=== PATIENT | female | born 1985 | race Caucasian/White ===

== ENCOUNTER 2022-09-13 11:47 | Emergency (ER) | payer OTHER, SELFPAY ==
--- NOTE | ~2022-09-13 | XR_ITS ---
EXAMINATION: XR chest 1V portable INDICATION: Chest injury and pain TECHNIQUE: Portable AP chest at 1228 hours COMPARISON: 02/16/2016 FINDINGS: The lungs are free of acute opacities. No pleural effusion or pneumothorax. There is a mode rate-sized hiatal hernia. IMPRESSION: 1. No acute cardiopulmonary abnormality. Reviewed, dictated and finalized at location B.
[2022-09-13 11:55] VITALS: BP 132/98; PULSE 86; RESP 18; TEMP 36.1; O2SAT 100
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
== END 2022-09-13 13:28 | disposition home or self-care (01) ==
PROVIDERS: Emergency Provider Emergency Medicine; PCP Internal Medicine
DX: R07.89 Other chest pain (principal)
CPT/HCPCS: 71045; 99283

== ENCOUNTER 2023-11-28 12:42 | Outpatient (CLI) | payer OTHER, SELFPAY ==
--- NOTE | ~2023-11-28 | MM_ITS ---
EXAMINATION: MM screening mo BI w jovanny HISTORY: Screening TECHNIQUE: Craniocaudal and mediolateral oblique 3-D tomosynthesis images were obtained and synthetic 2-D images were generated. CAD analysis was submitted and interpreted. COMPARISON: No prior mammogram is available for comparison at this institution. BREAST PARENCHYMAL COMPOSITION: Dense: The breasts are heterogeneously dense, which may obscure small masses FINDINGS: There is no evidence of suspicious mass, calcification, or architectural distortion to sugg est malignancy in either breast. There has been no suspicious interval change. IMPRESSION: 1. No mammographic evidence of malignancy. 2. Recommend routine screening mammography in one year. BI-RADS Category 1: Negative Reviewed, dictated and finalized at location B.
== END 2023-11-28 12:43 | disposition home or self-care (01) ==
LOC: CHSIMG 12:43
PROVIDERS: PCP Internal Medicine; Visit Provider Obstetrics & Gynecology
DX: Z12.31 Encounter for screening mammogram for malignant neoplasm of breast (principal)
CPT/HCPCS: 77063; 77067

== ENCOUNTER 2024-02-17 13:53 | Outpatient (CLI) | payer OTHER, SELFPAY ==
--- NOTE | ~2024-02-17 | US_ITS ---
EXAMINATION: US pelvic complete w TV INDICATION: IUD check. Irregular bleeding. Comparison:No prior studies for comparison. TECHNIQUE: Multiple transabdominal and endovaginal sonographic images of the pelvis performed. FINDINGS: The uterus measures 8.1 x 4.6 x 5.9 cm. IUD is present in the endometrium. The endometrial complex measures 8 mm. The right ovary measures 2.7 x 4.1 x 4 cm and the left ovary measures 2.3 x 3.4 x 2.4 cm. There are small follicles in each ovary. Normal doppler signal in both ovaries. There is free fluid in the pelvis. There are no abnormal masses seen on either side. IMPRESSION: 1. Unremarkable pelvic ultrasound. IUD present in the endometrium. Reviewed, dictated and finalized at location B. 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
== END 2024-02-17 13:54 | disposition home or self-care (01) ==
PROVIDERS: PCP Internal Medicine; Visit Provider Obstetrics & Gynecology
DX: Z30.431 Encounter for routine checking of intrauterine contraceptive device (principal)
CPT/HCPCS: 76830; 76856

== ENCOUNTER 2024-12-16 14:15 | Outpatient (CLI) | payer OTHER, SELFPAY ==
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
--- NOTE | ~2024-12-16 | MM_ITS ---
EXAMINATION: MM screening mo BI w jovanny HISTORY: Screening TECHNIQUE: Craniocaudal and mediolateral oblique 3-D tomosynthesis images were obtained and synthetic 2-D images were generated. CAD analysis was submitted and interpreted. COMPARISON: 11/28/2023 BREAST PARENCHYMAL COMPOSITION: There are scattered areas of fibroglandular density. FINDINGS: There is no evidence of suspicious mass, calcification, or architectural distortion to suggest malignancy. There has been no suspicious interval change. IMPRESSION: 1. No mammographic evidence of malignancy. Recommend routine screening mammography in one year. BI-RADS Category 2: Benign finding(s) Reviewed, dictated and finalized at location [facility]. IMPRESSION: 1. No mammographic evidence of malignancy. Recommend routine screening mammogra phy in one year. BI-RADS Category 2: Benign finding(s)
--- OUTSIDE RECORDS SUMMARY | 2024-12-16 16:21 | XMS_ITS | Encounter Summary ---
Author Organization [facility] Address [address] [place] [address] Phone Care Team Providers Care Tire Groover Name Role Phone Chiki Johns MD Primary Care Provider [phone] Emilia Harris MD Unavailable [phone] Encounter Details Date Type Department Care Team (Latest Contact Info) Description 04/04/2017 Orders Only [facility] CONVERSION Scanning, Provider Social History Tobacco Use Types Packs/Day Years Used Date Smoking Tobacco: Never Assessed Comments Unknown Sex and Gender Information Value Date Recorded Sex Assigned at Not on file Legal Sex Female 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 Gender Identity Not on file Sexual Orientation Not on file documented as of this encounter Plan of Treatment Not on file documented as of this encounter Procedures Procedure Name Priority Date/Time Associated Diagnosis Comments OBSTETRIC/GYNECOLOGY ULTRASONOGRAPHY REPORT 04/04/2017 10:53 AM WATER PURIFIER documented in this encounter Results * OBSTETRIC/GYNECOLOGY ULTRASONOGRAPHY REPORT (04/04/2017 10:53 AM WATER PURIFIER) Anatomical Region Laterality Modality Ultrasound us Provider Scanning IMG OB US PROCEDURES Final Res ult documented in this encounter Visit Diagnoses Not on filedocumented in this encounter Care Teams Tire Groover Relationship Specialty Start Date End Date Chiki Johns MD PCP - General 04/04/17 Emilia Harris MD [address] [facility] [address] [facility] [address] [place] [address] Consulting Physician Obstetrics and Gynecology 04/09/21 documented as of this encounter
--- OUTSIDE RECORDS SUMMARY | 2024-12-16 16:21 | XMS_ITS | Clinical Summary ---
Author Organization [facility] Address [address] [place] [address] Care Team Providers Care Systems Administrator Name Role Phone Unavailable Primary Care Provider Unavailabl e Source Comments [facility],non-owned Affiliates and Associated Physician Practices is amultiple site organization consisting of ambulatory clinics and hospital sitesin [place], [place], [place] and [place]. This disclosure is being madepursuant to the Care Everywhere program and may not contain all information available regarding this patient. 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 Female 10:25 AM ANNOUNCER Gender Identity Not on file Sexual Orientation Not on file Plan of Treatment Health Maintenance Due Date Last Done Comments LIPID TESTING 1985 MAMMOGRAM 1985 HIV SCREENING 11/02/1998 HEPATITIS C SCREENING 10/29/2001 DTAP/TDAP/TD VACCINES (1 - Tdap) 11/02/2002 HEPATITIS B VACCINE (1 of 3 - 19+ 3-dose series) 11/02/2002 PAP SMEAR 11/02/2004 HPV VACCINE (1 - 3-dose SCDM series) 11/02/2010 DEPRESSION SCREENING 03/03/2024 COVID-19 VACCINE (1 - 2023-2 5 season) 2024 INFLUENZA VACCINE (#1) 2024 ZOSTER VACCINE (1 of 2) 11/02/2033 HIB VACCINE Aged Out No longer eligi ble based on patient's age to complete this topic MENINGOCOCCAL (Group B) VACC INE SHARED DECISION-MAKING Aged Out No longer eligibl e based on patient's age to complete this topic MENINGOCOCCAL GROUPS A/C/Y/W VACCINE Aged Out No longer eligible b ased on patient's age to complete this topic PNEUMOCOCCAL VACCINE Aged Out No long er eligible based on patient's age to complete this topic Insurance MULTIPLAN
--- OUTSIDE RECORDS SUMMARY | 2024-12-16 16:21 | XMS_ITS | Encounter Summary ---
Author Organization [facility] Address [address] [place] [address] Care Team Providers Care Fur Mixer Operator Name Role Phone Unavailable Primary Care Provider Unavailabl e Encounter Details Date Type Department Care Team (Late st Contact Info) Description 01/13/2023 Lab Requisition [facility] - DermPath Lab [address] [place] [address] Kady De La Torre DO [address] [facility] [address] [place] [address] Social History Tobacco Use Types Packs/Day Years Used Date Smoking Tobacco: Never Assessed Comments Unknown Sex and Gender Information Value Date Recorded Sex Assigned at Not on file Legal Sex Female 10:25 AM SCHOOL PATROL Gender Identity Not on file Sexual Orientation Not on file documented as of this encounter Plan of Treatment Not on file documented as of this encounter Procedures Procedure Name Priority Date/Time Associated Diagnosis Comments DERMATOPATHOLOGY Routine 01/13/2023 10:1 4 AM SCHOOL PATROL documented in this encounter Results * DERMATOPATHOLOGY (01/13/2023 10:14 AM SCHOOL PATROL) Case Report Dermatopathology Report Case: [id number] Authorizing Provider: Kady De La Torre DO Collected: 01/13/2023 10:14 AM Ordering Location: [facility] Derm[facility] Lab Received: 01/15/2023 07:09 AM Pathologist: Quynh Martinez MD Specimen: Skin, right upper arm 3 12:51 PM [facility] Final Diagnosis Specimen A. SKIN, right upper arm: LENTIGINOUS MELANOCYTIC NEVUS, COMPOUND TYPE (D22.61) (see microscopic description and comment) 3 12:51 PM [facility] at [address] [employer] Clinical History Nevus R/O Atypia, Irregular Border, Irregular Color 3 12:51 PM [facility] DERMAT[facility] Gross Description Specimen A: Received is one formalin filled container labeled with the patient's name and designated right upper arm. The specimen consists of a shave biopsy measuring 6x3x1 mm. Jar 0. 3 12:51 PM [facility] DERMATOPATH[facility]Y [facility]OR[facility] Microscopic Description Specimen A. SKIN, right upper arm: This is a compound nevus. There is a lentiginous proliferation of melanocytes between nevus nests of cells along the dermal-epidermal junction. There is underlying lamellar fibroplasia of the papillary dermis. The intradermal component is bland in appearance and matures with depth. (Compound Camilo's Nevus) This lesion is present at the margin of the specimen. COMMENT: If this specimen is sampled from a larger lesion, these findings may not be aircraft sales representative of the entire lesion. Clinicopathologic correlation is recommended. 3 12:51 PM [facility] DERMATOPATH[facility]Y [facility]OR[facility] Disclaimer An external and internal positive and negative controls are appropriate for the histochemical, immunohistochemical and immunofluorescence stain(s) in this case (if any), except where stated explicitly. The performance characteristics of the stain(s) cited in this report were developed and its performance characteristic determined by the Dermatopathology Laboratory at [facility], directed by Dr. Mary Dorman. These tests need not be, and therefore are not, approved by the [place] Food and Drug Administration. The tests are used for clinical purposes. Billing Codes Specimen Charges Stain Charges 39217 1 3 12:51 PM [facility] DERMATOPATH[facility] Embedded Images 3 12:51 PM [facility] DERMATOPATH[facility]Y [facility]ORY Pathology/Cytolo gy TISSUE SPECIMEN FROM SKIN / Unknown 01/13/2023 10:14 AM SCHOOL PATROL 01/15/2023 7:09 AM SCHOOL PATROL us Kady De La Torre DO LAB - PATHOLOGY/CYTOLOGY ORDERABLES Final Result DERMATOPATHOLOGY LABORATORY [facility] - Department of Dermatology [address], [address] [phone] documented in this encounter Visit Diagnoses Not on filedocumented in this encounter
--- OUTSIDE RECORDS SUMMARY | 2024-12-16 16:22 | XMS_ITS | Clinical Summary ---
Author Organization [facility] Address [address] [place] [address] Care Team Providers Care Caustics Loader Name Role Phone Chiki Johns MD Primary Care Provider [phone] Emilia Harris MD Unavailable Allergies No known active allergies Medications lamoTRIgine (LaMICtal) 200 mg tablet 2 Active venlafaxine 225 mg tablet extended release 24hr 24 hr tablet 2 Active lamoTRIgine (LaMICtal) 100 mg tablet TAKE 1/2 TABLET BY MOUTH IN THE MORNING 2 Active levonorgestreL (MIRENA) IUD 1 each by intrauterine route once Inserted 05/18/2021 Active Active Problems Problem Noted Date Diagnosed Date Screening for cervical cancer 04/23/2021 Overview (04/23/2021): 04/11/21 - Pap w/ reflex to HPV - Negative Irregular menses 04/11/2021 Assessment & Plan (04/11/2021 1:27 PM REFORESTATION WORKER): Check UPT today. Addendum (results negative) Check quant hcg and TSH to r/o etiology. Discussed possible etiologies. Will check pelvic US for IUD position today. Well woman exam with routine gynecological exam 04/11/2021 Assessment & Plan (06/18/2021 2:16 PM CDT): Pap smear was done in April during a problem visit and was normal. Recommend self-breast exam and baseline mammogram at 38. We did confirm her IUD is appropriately placed by ultrasound today and her strings were visualized on exam. Continue with the Mirena and follow up p.r.n. any problems Assessment & Plan (04/11/2021 1:30 PM REFORESTATION WORKER): After US - r/w pt IUD is not position correctly. UPT negative but will confirm with quant since IUD malpositioned. I reviewed with pt options - remove IUD today - use condoms for BC til new mirena placed or remove today or another day if she doesn't have time and discuss other BC options. Pt desires new Mirena - states it's worked well for her til now. Will task staff to check coverage. Pt has WWE scheduled in June. Will set up IUD insertion - pt given mirena pamphlet and IUD instruction sheet. Answered pt's questions. Pt happy wit plan IUD removed without difficulty. H/O pelvic ultrasound 04/11/2021 Overview (04/11/2021): 04/2021 for bleeding with IUD. IUD is not positioned at the fundus. EMC 0.5cm. Bruno OV Nl. IUD removed. (pt's hcg 9.9) Surgical History Surgery Date Site/Laterality Comments VAGINAL DELIVERY / [facility]ro / Female Inna / 41 wks / 7-8oz / Spinal JUNG and had blood patch, MIL for post dates VAGINAL DELIVERY / Ramiro / Female Lupe LAPAROSCOPIC TICO FUNDOPLICATION 01/31/2011 - 03/02/2011 repair DILATION AND CURETTAGE OF UTERUS x2 EAB TICO FUNDOPLICATION Medical History Medical History Date Comments Abnormal Pap smear of cervix Depression GERD (gastroesophageal reflux disease) History of Tico fundoplication surgically repaired Bipolar II disorder (HCC) 05/2020 psychi atrist - Dr. March Cystic fibrosis Pradip i s Negative Smoker Family History Medical History Relation Name Comments Suicide Completion Father Heart attack Paternal Grandfather Lung cancer Paternal Grandfather Colon cancer Paternal Grandmother Breast cancer Neg Hx Relation Name Status Comments Father Mother Alive Paternal Grandfather Paternal Grandmother Social History Tobacco Use Types Packs/Day Years Used Date Smoking Tobacco: Never Smokeless Tobacco: Never Alcohol Use Standard Drinks/Week Comments No 0 (1 standard drink = 0.6 oz pur e alcohol) AUDIT-C Answer Date Recorded Q1: How often do you have a drink containing alc ohol? 2-4 times a month 06/18/2021 Average Number of Drinks Not on file 022 Frequency of Binge Drinking Not on file 06/01 Comments No Sex and Gender Information Value Date Recorded Sex Assigned at Not on file Legal Sex Female 11:20 AM REFORESTATION WORKER Gender Identity Not on file Sexual Orientation Not on file Obstetrics History Para Term AB IAB SAB Ectopic Multiple Livin g Live Births 6 3 3 3 2 1 3 3 Date Outcome GA Total Labor Labor/2nd/3rd Weight Sex Type Anes PTL Evangelina A1 A5 Name Clin 2001 IAB Decea sed 2004 IAB Decea sed 012 Term F Epidur al N Livin g Complications:None 014 Term F Epidur al N Livin g Complications:None 018 Term 39w 2d 5h 45m 5h 05m/0h 34m/0h 06m 3.935 kg (8 lb 10.8 oz) F Vag-S pont Epidur al N Livin g 8 9 PIGEO N,GIR [facility] Charly Monroe MD Complications:None Delivery Location:This [facility] ([facility]) 04/2021 SAB SAB Last Filed Vital Signs Vital Sign Reading Time Taken Comments Blood Pressure 120/86 06/18/2021 1:54 PM CDT Pulse 69 08/21/2017 8:00 AM CDT Temperature 37.2 C (99 F) 08/21/2017 8:00 AM CDT Respiratory Rate 18 08/21/2017 8:00 AM CDT Oxygen Saturation 100% 08/21/2017 8:00 AM CDT Inhaled Oxygen Concentration - - Weight 91.2 kg (201 lb) 06/18/2021 1:54 PM CDT Height 160 cm (5' 3) 06/18/2021 1:54 PM CDT Body Mass Index 35.61 06/18/2021 1:54 PM CDT Plan of Treatment Health Maintenance Due Date Last Done Comments Breast Cancer Screening-Mammogram 1985 Varicella Vaccines (1 of 2 - 13+ 2-dose series) 11/02/1996 Hepatitis B Screening 11/02/2001 HPV Vaccines (1 - 3-dose SCDM series) 11/02/2010 Depression Screening 08/21/2018 08/21/2017 Cervical Cancer Screening 04/11/2022 04/11/2021 Regular Well Visit/Exam 18-64 06/18/2022 06/18/2021 Covid-19 Vaccine (3 - 2024- season) 2024 02/19/2021, 05/11/2020, 05/11/2020 Influenza Vaccine (#1) 2024 8, 12/01/2017, 01/14/2017, Additional history exists DTaP/Tdap/Td Vaccine (3 - Td or Tdap) 07/17/2027 07/16/2017, 04/15/2013 Hepatitis C Screening Completed 01/31/2017, 013 Pneumococcal vaccine <65 Aged Out No longer eligible based on patient's age to complete this topic Procedures Procedure Name Priority Date/Time Associated Diagnosis Comments PAP WITH REFLEX TO HIGH RISK HPV Routine 04/11/2021 10:55 AM REFORESTATION WORKER HEPATITIS C ANTIBODY Routine 01/31/2017 10:39 AM REFORESTATION WORKER from Last 3 Months or Most Recently Relevant to Health Maintenance Results * Pap with reflex to High Risk HPV (04/11/2021 10:55 AM REFORESTATION WORKER) Pap test 04/11/2021 10:5 5 AM REFORESTATION WORKER 04/13/2021 8:48 AM REFORESTATION WORKER Narrative 04/17/2021 9:04 AM REFORESTATION WORKER EPIC results best viewed via link to PDF [place] [id number] [facility], [place], [place] [address] Tele: Suad Linares MD - [employer] Analyst CYTOLOGY REPORT Note to Patients: This report may contain a detailed description of human tissue sent by a health care provider to the laboratory for pathologic evaluation. The content of this report is essential for diagnosis and may provide important critical findings. This information may be unfamiliar to patients to review without a medical professional present. It is advised that the patient review this report in the presence of a health care provider who can answer questions and explain the details. Patient Name: NEISHA COLON Address: [address] [place] [address] Gender: F : 1985 (Age: 35) Service: Location: Hospital #: [id number] Patient Type: [facility] SPECIMEN Taken: 04/11/2021 Reported: 04/17/2021 Physician(s): IESHA Zhong FINAL DIAGNOSIS: Specimen Type: - ThinPrep Pap w/ reflex HPV Statement of Specimen Adequacy: Source: Cervical/Endocervical - Satisfactory for interpretation - Endocervical /Transformation Zone component present - Scant Cellularity - Case screened using computer assisted imaging technology General Categorization: - Negative for intraepithelial lesion or malignancy xbb/04/17/2021 09:04 GUNNER Solis (ASCP) Report Reviewed and Electronically Signed By GUNNER Solis (ASCP) Clerical Data Follow A; [id number] CLINICAL DIAGNOSIS AND HISTORY Last Menstrual Period: 03/25/21 Contraceptive History: IUD REPORT IMAGES AND/OR SCANNED DOCUMENTS ONLY VIEWABLE IN PDF FORMAT The Pap test is a screening test used to aid in the detection of cervical cancer and its precursors. It should not be the sole means by which malignant and premalignant lesions are diagnosed. Both false negative and false positive results may occur. It also has poor sensitivity for the detection of endometrial lesions and should not be used to evaluate suspected endometrial abnormalities. For these reasons it is most important to obtain Pap tests at regular intervals, as recommended by your physician or nurse practitioner. Yajaira Corral [facility] CYTOLOGY ORDERABLES Final Result * Hepatitis C antibody (01/31/2017 10:39 AM REFORESTATION WORKER) Hep C Ab Non-Reactiv e Non-Reactiv e [facility] Blood specimen (specimen) 01/31/2017 10:39 AM REFORESTATION WORKER 01/31/2017 12:42 PM REFORESTATION WORKER Narrative [facility] - 01/31/2017 1:28 PM REFORESTATION WORKER us Notinfile Unknown LAB MICROBIOLOGY - GENERAL ORD ERABLES Final Result [facility] [address]issa[address] Department [place] [address] from Last 3 Months or Most Recently Relevant to Health Maintenance Insurance [facility] C[employer] MULTIPLAN MULTIPLAN MULTIPLAN Advance Directives For more information, please contact: [phone] * Full Code (Latest Code Status on File) Date Activated Date Inactivated Comments 08/20/2017 9:44 PM 08/21/2017 8:00 PM * Full Code Date Activated Date Inactivated Comments 08/20/2017 8:16 AM 08/20/2017 9:44 PM Full CPR in case of cardiopulmonary arrest Care Teams Caustics Loader Relationship Specialty Start Date End Date Chiki Johns MD PCP - General 04/04/17 Emilia Harris MD [address] [facility] [address] [place] [address] Consulting Physician Obstetrics and Gynecology 04/09/21
--- OUTSIDE RECORDS SUMMARY | 2024-12-16 16:22 | XMS_ITS | Patient Health Record ---
Author Organization [facility] [employer] Address [address] [facility] [address] [place] [address] Care Team Providers Care Arbitrator Name Role Phone Chiki Johns MD Primary Care Provider Unavaila Quynh Garrido Unavailable [phone] LeylaKhalif sánchez Unavailable [phone] Allergies No Known Allergies Results Component Value Reference Range Flag Notes UDT Reviewed date:05/12/2024 08:45:53 PM Interpretation: Performing Lab: Notes/Report: THC P 0 - 50 ng/ml Cocaine N 0 - 300 ng/ml Amphetamine N 0 - 1000 ng/ml Buprenorphine (BUP) N 0 - 10 ng/ml Secobarbital (Bar) N 0 - 300 ng/ml Oxazepam (BZO) N 0 - 300 ng/ml 3-wspymjmccr-2,2-rxtyfmxz-9, 3-diph enylpyrrolidine (EDDP) N 0 - 300 ng/ml Methamphetamine (MET) N 0 - 1000 ng/ml Methylenedioxymethamphetamin e (MDMA) N 0 - 500 ng/ml Morphine (MOP 300/[id number]) N 0 - 300 ng/ml Methadone (MTD) N 0 - 300 ng/ml Phencyclidine (PCP) N 0 - 25 ng/ml Nortriptyline (TCA) N 0 - 1000 ng/ml Oxycodone N 0 - 300 ng/ml x N 0 - 300 ng/ml DRUG MONITOR, MARIJUANA META B, QN, URINE ([id number]) Reviewed date:05/20/2024 09:44:26 AM Interpretation: Performing Lab:[place], [facility] [facility], [id number] Rodri Burnette, Director - [id number] [facility] [facility] Notes/Report: FASTING: NO Marijuana Metabolite >5000 <5 ng/mL H medMATCH Marijuana Metab INCONSISTENT A Marijuana Comments See Boy osegueraedith Notes, LDT Notes Notes and Comments This drug testing is for medical treatment only. Analysis was performed as non-forensic testing and these results should be used only by healthcare providers to render diagnosis or treatment, or to monitor progress of medical conditions. Marijuana Notes: Marijuana Metabolite detected is consistent with exposure to Marijuana (THC) and/or hemp derived products. Some jurisdictions do not include hemp within the definition of Marijuana. LDT Notes: Confirmation tests were developed and their analytical performance characteristics have been determined by [facility]. It has not been cleared or approved by the FDA. This assay has been validated pursuant to the CLIA regulations and is used for clinical purposes. medMATCH(R) enables providers to identify if drug use is consistent or inconsistent with a corresponding prescribed medication(s) list. Healthcare Providers needing Interpretation assistance, please contact us at [phone] ( ) M-F, 8am to 10pm EST PRESCRIBED DRUGS, medMATCH(R ) ([id number]) Reviewed date:05/20/2024 09:44:26 AM Interpretation: Performing Lab:[id number] Catarino Ortiz, [id number] Francisco Javier Penn MD Notes/Report: FASTING: NO medMATCH Summary Prescribed Prescribed Not Prescribed Consistent Inconsistent Inconsistent Marijuana Metabolite Reason For Referral No Information Medications Medication SIG (Take, Route, Frequency, Duration) Notes Start Date End Date Status Atomoxetine HCl 80 MG Capsule 1 capsule every morning Orally Once a day; Duration: 30 days Active MIRENA 21 MCG/24 HR (UP TO 8 YEARS) 52 MG INTRAUTERINE DEVICE *Reorder from [employer] for eRx and Interaction Alerts* 06/16/2023 Active Venlafaxine HCl ER 225 MG Tablet Extended Release 24 Hour 1 tablet Oral Once a day; Duration: 90 days Active lamoTRIgine 100 MG Tablet 2 tablet every night Oral daily; Duration: 90 days Active Social History Tobacco Use: Social History Observation Description Date Details (start date - stop date) Never Smoker NA - NA Sex Assigned At : Social History Observation Description Sex Assigned At Female Social History Miscellaneous: Social Info Question Answer Notes Advance Care Planning Are you your own decision-maker Yes Do you have Power of Floor Nurse for Health or [facility] andrea? No Safety issues: Are there any firearms in the house? No Social History Social Info Question Answer Notes Household: Marital Status: Number of Adults in household: 2 Number of Children in Household: 3 Level of Education: Professional Schools/Masters /PhD Drug/Alcohol: Social Info Question Answer Notes Drugs Have you used drugs other than those for medical reasons in the past 12 months? Yes Methamphetamine? No Crack? No LSD? No Ecstacy? No Prescription opiates? No Marijuana? Yes Ketamine? No PCP? No Is there a minor (18 years or younger) at risk at home? No Are you still using? Yes Do you want treatment? No AUDIT-C (Standard) Did you have a drink containi ng alcohol in the past year? Yes How often did you have six or more drinks on one occasion in the past year? Less than monthly (1 point) How many drinks did you have on a typical day when you were drinking in the past year? 3 or 4 drinks (1 point) How often did you have a drink containing alcohol in the past year? 2 to 4 times a month (2 points) Tobacco Use: Social Info Question Answer Notes Tobacco Control (Standard) Tobacco use: Nonsmoker Additional Details Category Social Info Options Details Migrated Social History Migrated Social History Alcohol Intake: Occasional 06/16/2023,Tobacco Years: Former smoker 06/16/2023 Problems Problem Type SNOMED Code ICD Code Onset Dates Problem Status W/U Status Risk Notes Problem Bipolar disorder (36847735) Bipolar disorder, unspecified (F31.9) Active confirmed Problem Generalized anxiety disorder (98536167) Generalized anxiety disorder (F41.1) 06/16/19 24 Active confirmed Problem Attention deficit hyperactivity disorder, combined type (37247364) Attention-deficit hyperactivity disorder, combined type (F90.2) Active confirmed Problem Nondependent cannabis abuse (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) Marijuana use (F12.90) Active confirmed Problem Middle insomnia (35138563) Middle insomnia (G47.00) Active confirmed Problem Middle insomnia (28841757) Middle insomnia (G47.00) Active confirmed Problem Alcohol abuse (83075730) Alcohol consumption binge drinking (F10.10) Active confirmed Vital Signs Heart Rate 71 /min 08/18/2024 Height-cm 157.48 cm 08/18/2024 Blood pressure diastolic 79 mm Hg 08/18/2024 Weight-kg 64.86 kg 08/18/2024 Height 62.00 in 08/18/2024 Blood pressure systolic 113 mm Hg 08/18/2024 Weight 143 lbs 08/18/2024 BMI 26.15 kg/m2 08/18/2024 Procedures Procedure Date Ordered Date Performed Result Body Sit e ADHD Testing 04/20/2024 05/12/2024 N/A Encounters Encounter Location Date Provider Diagnosis [facility] [address] [facility] [address] [place] [address] 03/16/2024 Quynh Sandoval Bipolar II disorder F31.81 ; Generalized anxiety disorder F41.1 ; Middle insomnia G47.00 and Alcohol consumption binge drinking F10.10 [facility] [address] [facility] [address] [place] [address] 04/20/2024 Quynh Sandoval Bipolar II disorder F31.81 ; Generalized anxiety disorder F41.1 ; Middle insomnia G47.00 and Attention and concentration deficit R41.840 [facility] [address] [address] 05/12/2024 Khalif Mayer Lack of concentratio n R41.840 [employer] [facility] [address] [facility] [address] [place] [address] 05/19/2024 Quynh Sandoval Attention-deficit hyperactivity disorder, combined type F90.2 ; Bipolar disorder, unspecified F31.9 ; Generalized anxiety disorder F41.1 ; Middle insomnia G47.00 ; Encounter for screening for depression Z13.31 and Encounter for screening for cardiovascular disorders Z13.6 [facility] [address] [facility] [address] [place] [address] 08/18/2024 Quynh Sandoval Attention-deficit hyperactivity disorder, combined type F90.2 ; Generalized anxiety disorder F41.1 ; Bipolar disorder, unspecified F31.9 ; Marijuana use F12.90 ; Encounter for screening for cardiovascular disorders Z13.6 and Negative depression screening Z13.31 [facility] [address] [place] [address] 03/15/2024 Quynh Sandoval [facility] [employer] [facility] [address] [place] [address] 04/20/2024 Quynh Sandoval Assessments Encounter Date Diagnosis (ICD Code) Assessment Notes Treatment Notes Treatment Clinical Notes Section Notes 04/20/2024 Bipolar II disorder (ICD-10 - F31.81) Expresses concerns about accuracy of bipolar dagnosis and wishes to explore decreasing/elimin ating medications. Expresses desire to pursue ADHD testing and treatment, mutual decision to get ADHD testing before changing any medications as her mood and anxiety is currently stable Bipolar II Disorder - questionable with accuracy - mood currently stable Plan: - Continue lamotrigine 200 mg daily for now - discuss more in depth history and symptoms in future visits Attention Deficit Hyperactivity Disorder (previously diagnosed by another provider, never treated) - Patient expressed concerns about ADHD impact on life and functioning Plan: - Schedule for ADHD testing and follow up to discuss results and treatment options Anxiety - Currently on Effexor 225 mg daily, effective in managing symptoms Plan: - Continue Effexor 225 mg daily Insomnia - Sleeping well currently, not taking trazodone, wishes to stop Plan: - Stop trazodone Follow-up after ADHD testing, sooner if concerns arise 04/20/2024 Generalized anxiety disorder (ICD-10 - F41.1) Expresses concerns about accuracy of bipolar dagnosis and wishes to explore decreasing/elimin ating medications. Expresses desire to pursue ADHD testing and treatment, mutual decision to get ADHD testing before changing any medications as her mood and anxiety is currently stable Bipolar II Disorder - questionable with accuracy - mood currently stable Plan: - Continue lamotrigine 200 mg daily for now - discuss more in depth history and symptoms in future visits Attention Deficit Hyperactivity Disorder (previously diagnosed by another provider, never treated) - Patient expressed concerns about ADHD impact on life and functioning Plan: - Schedule for ADHD testing and follow up to discuss results and treatment options Anxiety - Currently on Effexor 225 mg daily, effective in managing symptoms Plan: - Continue Effexor 225 mg daily Insomnia - Sleeping well currently, not taking trazodone, wishes to stop Plan: - Stop trazodone Follow-up after ADHD testing, sooner if concerns arise 03/16/2024 Bipolar II disorder (ICD-10 - F31.81) Anixiety - Currently on Effexor 225 mg daily, effective in managing symptoms - Eliminated additional 75 mg dose without negative effects Plan: - Continue Effexor 225 mg daily - Reassess effectiveness and potential side effects at next follow-up Bipolar II Disorder - Currently on Lamotrigine for bipolar II disorder - Patient mentioned possibility of PMDD as alternative diagnosis Plan: - Maintain current Lamotrigine regimen - discuss history, symptoms, and reassess symptoms next visit Attention Deficit Hyperactivity Disorder (ADHD) - Previous ADHD evaluation and diagnosis, but untreated - Patient expressed concerns about ADHD impact on life and functioning Plan: - Discuss ADHD symptoms, impact on daily life, and potential treatment options at next follow-up Insomnia - Sleeping fair currently - Prescribed Trazodone as needed, used sparingly due to family circumstances Plan: - Continue Trazodone as needed for sleep difficulties Recent loss of a family member - Patient's mother on day of appointment Plan: - Reassess mental health status and discuss concerns related to recent loss at follow-up - Adjust treatment plan as necessary Therapy status - Not currently in therapy, using learned tools to manage mental health Plan: - Reevaluate need for therapy at next follow-up Follow-up in 4 to 6 weeks to reassess mental health status, discuss concerns, and adjust treatment plan as needed 05/12/2024 Lack of concentration (ICD-10 - R41.840) Cognitive Assessment Analysis & Non-Stimulant Recommendations for Neisha Roland Assessment Overview: Date of : 1985 (Age: 38) Gender: Female Comparative Group: Females aged 35-44 Assessment Date: May 12, 2024 Cognitive Markers Outside Typical Range: 5 ASRS Questionnaire Result: Indicative of ADHD THC Positive: Cannot use stimulant medication Espinal Findings Cognitive Strengths: Attention (Feature Match) - 85th Percentile Strong ability to identify relevant details and visual patterns, suggesting intact selective attention skills. Sustained Attention (SART) - Reaction Time Variability: 68th Percentile Moderately stable attention over time, though some fluctuations exist. Cognitive Weaknesses (Outside Typical Range) Spatial Working Memory (Token Search) - 7th Percentile Difficulty holding and manipulating spatial information, affecting organization and planning. Response Inhibition (Double Trouble) - 91st Percentile (High Errors) Poor impulse control, leading to difficulty stopping automatic responses. Reaction Time (Feature Match) - 94th Percentile (Slower Reaction Time) Delayed responses, indicating potential difficulties with processing speed. Overall Reaction Time (Double Trouble) - 92nd Percentile Significantly slower response time in decision-making tasks. Slowing After Errors (SART) - 10th Percentile Difficulty adjusting behavior after mistakes, impacting learning from errors. ASRS ADHD Questionnaire Results: Part A Score: 5 (Threshold > 3) ADHD Indicative Part B Score: 10 (Supportive of ADHD symptoms) Non-Stimulant Treatment & Lifestyle Recommendations Since stimulant medications (e.g., Adderall, Ritalin) are contraindicated due to THC use, non-stimulant options and lifestyle modifications should be considered. 1. Non-Stimulant Medications Atomoxetine (Strattera) - Targets norepinephrine for sustained ADHD symptom control. Guanfacine (Intuniv) or Clonidine (Kapvay) - Alpha-2 agonists that help with impulse control and working memory. Bupropion (Wellbutrin) - Antidepressant that can aid ADHD symptoms by increasing dopamine and norepinephrine. 2. Behavioral & Cognitive Strategies Cognitive-Behavio ral Therapy (CBT): Helps manage impulsivity and executive dysfunction. Mindfulness Training: Reduces distractibility and improves sustained attention. Habit Stacking & External Supports: Use alarms, to-do lists, and structured routines to aid working memory deficits. Reduce distractions and use noise-canceling headphones for focus. 3. Nutritional & Lifestyle Adjustments [place]-3 Fatty Acids: Shown to improve executive function in ADHD. Regular Exercise: Boosts dopamine and norepinephrine naturally, helping with attention and impulse control. Sleep Optimization: Establishing a fixed sleep schedule improves cognitive regulation. 05/19/2024 Bipolar disorder, unspecified (ICD-10 - F31.9) Attention Deficit Hyperactivity Disorder (ADHD) Assessment: Patient underwent cognitive testing which revealed deficits consistent with ADHD. Cannabis use, does express willingness to quit in order to gain better control over symptoms and broaden treatment options Plan: - Initiate atomoxetine (Strattera) 40 mg PO daily in the morning - Educate patient on potential side effects: headaches, increased anxiety, jitteriness, appetite suppression - Advise patient to report significant side effects such as increased blood pressure, heart palpitations, or heightened anxiety - Schedule follow-up in 4 weeks to assess medication efficacy and tolerability - Consider stimulant medication if urine drug screen is negative in future visits if indicated Cannabis Use Assessment: Patient reports ongoing cannabis use. Expresses desire to quit to assist with symptom management. Plan: - Advise patient to abstain from cannabis use - Discuss cannabis impact on mental health, ADHD, and treatment efficacy Mood Disorder Assessment: Patient reports stable mood following recent medication adjustments, including decreased venlafaxine and discontinuation of trazodone. Lamotrigine was also decreased due to reassessment of bipolar diagnosis. Patient is coping well with recent loss of mother, utilizing healthy coping mechanisms such as crying when needed and writing. Exoresses desire to continue decreasing her medications Plan: - Continue current medication regimen: lamotrigine, venlafaxine - Assess for potential to continue tapering down on medications in future visits Follow up 1 month, sooner if concerns arise 05/19/2024 Attention-defici t hyperactivity disorder, combined type (ICD-10 - F90.2) Attention Deficit Hyperactivity Disorder (ADHD) Assessment: Patient underwent cognitive testing which revealed deficits consistent with ADHD. Cannabis use, does express willingness to quit in order to gain better control over symptoms and broaden treatment options Plan: - Initiate atomoxetine (Strattera) 40 mg PO daily in the morning - Educate patient on potential side effects: headaches, increased anxiety, jitteriness, appetite suppression - Advise patient to report significant side effects such as increased blood pressure, heart palpitations, or heightened anxiety - Schedule follow-up in 4 weeks to assess medication efficacy and tolerability - Consider stimulant medication if urine drug screen is negative in future visits if indicated Cannabis Use Assessment: Patient reports ongoing cannabis use. Expresses desire to quit to assist with symptom management. Plan: - Advise patient to abstain from cannabis use - Discuss cannabis impact on mental health, ADHD, and treatment efficacy Mood Disorder Assessment: Patient reports stable mood following recent medication adjustments, including decreased venlafaxine and discontinuation of trazodone. Lamotrigine was also decreased due to reassessment of bipolar diagnosis. Patient is coping well with recent loss of mother, utilizing healthy coping mechanisms such as crying when needed and writing. Exoresses desire to continue decreasing her medications Plan: - Continue current medication regimen: lamotrigine, venlafaxine - Assess for potential to continue tapering down on medications in future visits Follow up 1 month, sooner if concerns arise 08/18/2024 Generalized anxiety disorder (ICD-10 - F41.1) 08/18/2024 Attention-defici t hyperactivity disorder, combined type (ICD-10 - F90.2) 08/18/2024 Bipolar disorder, unspecified (ICD-10 - F31.9) 05/19/2024 Generalized anxiety disorder (ICD-10 - F41.1) Attention Deficit Hyperactivity Disorder (ADHD) Assessment: Patient underwent cognitive testing which revealed deficits consistent with ADHD. Cannabis use, does express willingness to quit in order to gain better control over symptoms and broaden treatment options Plan: - Initiate atomoxetine (Strattera) 40 mg PO daily in the morning - Educate patient on potential side effects: headaches, increased anxiety, jitteriness, appetite suppression - Advise patient to report significant side effects such as increased blood pressure, heart palpitations, or heightened anxiety - Schedule follow-up in 4 weeks to assess medication efficacy and tolerability - Consider stimulant medication if urine drug screen is negative in future visits if indicated Cannabis Use Assessment: Patient reports ongoing cannabis use. Expresses desire to quit to assist with symptom management. Plan: - Advise patient to abstain from cannabis use - Discuss cannabis impact on mental health, ADHD, and treatment efficacy Mood Disorder Assessment: Patient reports stable mood following recent medication adjustments, including decreased venlafaxine and discontinuation of trazodone. Lamotrigine was also decreased due to reassessment of bipolar diagnosis. Patient is coping well with recent loss of mother, utilizing healthy coping mechanisms such as crying when needed and writing. Exoresses desire to continue decreasing her medications Plan: - Continue current medication regimen: lamotrigine, venlafaxine - Assess for potential to continue tapering down on medications in future visits Follow up 1 month, sooner if concerns arise 04/20/2024 Middle insomnia (ICD-10 - G47.00) Expresses concerns about accuracy of bipolar dagnosis and wishes to explore decreasing/elimin ating medications. Expresses desire to pursue ADHD testing and treatment, mutual decision to get ADHD testing before changing any medications as her mood and anxiety is currently stable Bipolar II Disorder - questionable with accuracy - mood currently stable Plan: - Continue lamotrigine 200 mg daily for now - discuss more in depth history and symptoms in future visits Attention Deficit Hyperactivity Disorder (previously diagnosed by another provider, never treated) - Patient expressed concerns about ADHD impact on life and functioning Plan: - Schedule for ADHD testing and follow up to discuss results and treatment options Anxiety - Currently on Effexor 225 mg daily, effective in managing symptoms Plan: - Continue Effexor 225 mg daily Insomnia - Sleeping well currently, not taking trazodone, wishes to stop Plan: - Stop trazodone Follow-up after ADHD testing, sooner if concerns arise 03/16/2024 Generalized anxiety disorder (ICD-10 - F41.1) Anixiety - Currently on Effexor 225 mg daily, effective in managing symptoms - Eliminated additional 75 mg dose without negative effects Plan: - Continue Effexor 225 mg daily - Reassess effectiveness and potential side effects at next follow-up Bipolar II Disorder - Currently on Lamotrigine for bipolar II disorder - Patient mentioned possibility of PMDD as alternative diagnosis Plan: - Maintain current Lamotrigine regimen - discuss history, symptoms, and reassess symptoms next visit Attention Deficit Hyperactivity Disorder (ADHD) - Previous ADHD evaluation and diagnosis, but untreated - Patient expressed concerns about ADHD impact on life and functioning Plan: - Discuss ADHD symptoms, impact on daily life, and potential treatment options at next follow-up Insomnia - Sleeping fair currently - Prescribed Trazodone as needed, used sparingly due to family circumstances Plan: - Continue Trazodone as needed for sleep difficulties Recent loss of a family member - Patient's mother on day of appointment Plan: - Reassess mental health status and discuss concerns related to recent loss at follow-up - Adjust treatment plan as necessary Therapy status - Not currently in therapy, using learned tools to manage mental health Plan: - Reevaluate need for therapy at next follow-up Follow-up in 4 to 6 weeks to reassess mental health status, discuss concerns, and adjust treatment plan as needed 03/16/2024 Middle insomnia (ICD-10 - G47.00) Anixiety - Currently on Effexor 225 mg daily, effective in managing symptoms - Eliminated additional 75 mg dose without negative effects Plan: - Continue Effexor 225 mg daily - Reassess effectiveness and potential side effects at next follow-up Bipolar II Disorder - Currently on Lamotrigine for bipolar II disorder - Patient mentioned possibility of PMDD as alternative diagnosis Plan: - Maintain current Lamotrigine regimen - discuss history, symptoms, and reassess symptoms next visit Attention Deficit Hyperactivity Disorder (ADHD) - Previous ADHD evaluation and diagnosis, but untreated - Patient expressed concerns about ADHD impact on life and functioning Plan: - Discuss ADHD symptoms, impact on daily life, and potential treatment options at next follow-up Insomnia - Sleeping fair currently - Prescribed Trazodone as needed, used sparingly due to family circumstances Plan: - Continue Trazodone as needed for sleep difficulties Recent loss of a family member - Patient's mother on day of appointment Plan: - Reassess mental health status and discuss concerns related to recent loss at follow-up - Adjust treatment plan as necessary Therapy status - Not currently in therapy, using learned tools to manage mental health Plan: - Reevaluate need for therapy at next follow-up Follow-up in 4 to 6 weeks to reassess mental health status, discuss concerns, and adjust treatment plan as needed 04/20/2024 Attention and concentration deficit (ICD-10 - R41.840) Expresses concerns about accuracy of bipolar dagnosis and wishes to explore decreasing/elimin ating medications. Expresses desire to pursue ADHD testing and treatment, mutual decision to get ADHD testing before changing any medications as her mood and anxiety is currently stable Bipolar II Disorder - questionable with accuracy - mood currently stable Plan: - Continue lamotrigine 200 mg daily for now - discuss more in depth history and symptoms in future visits Attention Deficit Hyperactivity Disorder (previously diagnosed by another provider, never treated) - Patient expressed concerns about ADHD impact on life and functioning Plan: - Schedule for ADHD testing and follow up to discuss results and treatment options Anxiety - Currently on Effexor 225 mg daily, effective in managing symptoms Plan: - Continue Effexor 225 mg daily Insomnia - Sleeping well currently, not taking trazodone, wishes to stop Plan: - Stop trazodone Follow-up after ADHD testing, sooner if concerns arise 05/19/2024 Middle insomnia (ICD-10 - G47.00) Attention Deficit Hyperactivity Disorder (ADHD) Assessment: Patient underwent cognitive testing which revealed deficits consistent with ADHD. Cannabis use, does express willingness to quit in order to gain better control over symptoms and broaden treatment options Plan: - Initiate atomoxetine (Strattera) 40 mg PO daily in the morning - Educate patient on potential side effects: headaches, increased anxiety, jitteriness, appetite suppression - Advise patient to report significant side effects such as increased blood pressure, heart palpitations, or heightened anxiety - Schedule follow-up in 4 weeks to assess medication efficacy and tolerability - Consider stimulant medication if urine drug screen is negative in future visits if indicated Cannabis Use Assessment: Patient reports ongoing cannabis use. Expresses desire to quit to assist with symptom management. Plan: - Advise patient to abstain from cannabis use - Discuss cannabis impact on mental health, ADHD, and treatment efficacy Mood Disorder Assessment: Patient reports stable mood following recent medication adjustments, including decreased venlafaxine and discontinuation of trazodone. Lamotrigine was also decreased due to reassessment of bipolar diagnosis. Patient is coping well with recent loss of mother, utilizing healthy coping mechanisms such as crying when needed and writing. Exoresses desire to continue decreasing her medications Plan: - Continue current medication regimen: lamotrigine, venlafaxine - Assess for potential to continue tapering down on medications in future visits Follow up 1 month, sooner if concerns arise 08/18/2024 Marijuana use (ICD-10 - F12.90) 08/18/2024 Encounter for screening for cardiovascular disorders (ICD-10 - Z13.6) 05/19/2024 Encounter for screening for depression (ICD-10 - Z13.31) Attention Deficit Hyperactivity Disorder (ADHD) Assessment: Patient underwent cognitive testing which revealed deficits consistent with ADHD. Cannabis use, does express willingness to quit in order to gain better control over symptoms and broaden treatment options Plan: - Initiate atomoxetine (Strattera) 40 mg PO daily in the morning - Educate patient on potential side effects: headaches, increased anxiety, jitteriness, appetite suppression - Advise patient to report significant side effects such as increased blood pressure, heart palpitations, or heightened anxiety - Schedule follow-up in 4 weeks to assess medication efficacy and tolerability - Consider stimulant medication if urine drug screen is negative in future visits if indicated Cannabis Use Assessment: Patient reports ongoing cannabis use. Expresses desire to quit to assist with symptom management. Plan: - Advise patient to abstain from cannabis use - Discuss cannabis impact on mental health, ADHD, and treatment efficacy Mood Disorder Assessment: Patient reports stable mood following recent medication adjustments, including decreased venlafaxine and discontinuation of trazodone. Lamotrigine was also decreased due to reassessment of bipolar diagnosis. Patient is coping well with recent loss of mother, utilizing healthy coping mechanisms such as crying when needed and writing. Exoresses desire to continue decreasing her medications Plan: - Continue current medication regimen: lamotrigine, venlafaxine - Assess for potential to continue tapering down on medications in future visits Follow up 1 month, sooner if concerns arise 03/16/2024 Alcohol consumption binge drinking (ICD-10 - F10.10) Anixiety - Currently on Effexor 225 mg daily, effective in managing symptoms - Eliminated additional 75 mg dose without negative effects Plan: - Continue Effexor 225 mg daily - Reassess effectiveness and potential side effects at next follow-up Bipolar II Disorder - Currently on Lamotrigine for bipolar II disorder - Patient mentioned possibility of PMDD as alternative diagnosis Plan: - Maintain current Lamotrigine regimen - discuss history, symptoms, and reassess symptoms next visit Attention Deficit Hyperactivity Disorder (ADHD) - Previous ADHD evaluation and diagnosis, but untreated - Patient expressed concerns about ADHD impact on life and functioning Plan: - Discuss ADHD symptoms, impact on daily life, and potential treatment options at next follow-up Insomnia - Sleeping fair currently - Prescribed Trazodone as needed, used sparingly due to family circumstances Plan: - Continue Trazodone as needed for sleep difficulties Recent loss of a family member - Patient's mother on day of appointment Plan: - Reassess mental health status and discuss concerns related to recent loss at follow-up - Adjust treatment plan as necessary Therapy status - Not currently in therapy, using learned tools to manage mental health Plan: - Reevaluate need for therapy at next follow-up Follow-up in 4 to 6 weeks to reassess mental health status, discuss concerns, and adjust treatment plan as needed 05/19/2024 Encounter for screening for cardiovascular disorders (ICD-10 - Z13.6) Attention Deficit Hyperactivity Disorder (ADHD) Assessment: Patient underwent cognitive testing which revealed deficits consistent with ADHD. Cannabis use, does express willingness to quit in order to gain better control over symptoms and broaden treatment options Plan: - Initiate atomoxetine (Strattera) 40 mg PO daily in the morning - Educate patient on potential side effects: headaches, increased anxiety, jitteriness, appetite suppression - Advise patient to report significant side effects such as increased blood pressure, heart palpitations, or heightened anxiety - Schedule follow-up in 4 weeks to assess medication efficacy and tolerability - Consider stimulant medication if urine drug screen is negative in future visits if indicated Cannabis Use Assessment: Patient reports ongoing cannabis use. Expresses desire to quit to assist with symptom management. Plan: - Advise patient to abstain from cannabis use - Discuss cannabis impact on mental health, ADHD, and treatment efficacy Mood Disorder Assessment: Patient reports stable mood following recent medication adjustments, including decreased venlafaxine and discontinuation of trazodone. Lamotrigine was also decreased due to reassessment of bipolar diagnosis. Patient is coping well with recent loss of mother, utilizing healthy coping mechanisms such as crying when needed and writing. Exoresses desire to continue decreasing her medications Plan: - Continue current medication regimen: lamotrigine, venlafaxine - Assess for potential to continue tapering down on medications in future visits Follow up 1 month, sooner if concerns arise 08/18/2024 Negative depression screening (ICD-10 - Z13.31) 08/18/2024 Other Neisha Roland, female patient, presenting for medication management of an unspecified psychiatric condition. Unspecified Psychiatric Condition Assessment: Patient reports no significant changes in symptoms since starting medication at 40 mg. No side effects reported. Sleep, anxiety levels, mood, and appetite remain stable. Blood pressure is within normal limits. No palpitations, anxiety, or nausea experienced with current medication. Plan: - Increase medication dosage from 40 mg to 80 mg - Patient instructed to report any intolerance to new dosage - Continue lamotrigine 200 mg total daily (100 mg in the morning) - Follow-up appointment in 4 weeks to assess response to medication adjustment - Refill for lamotrigine to be sent to current pharmacy Plan Of Treatment No Information Insurance Providers Payer Name Payer Address Payer Phone Subscriber Number Group Number Insured Name Patient Relationship to Insured Coverage Start Date Coverage End Date Brainly Doctor Evidence Benefit Administratio n Ppo [address] [place] [phone] [id number] LUAN NEISHA Self - patient is the insured Medical (General) History Medical History History ICD Code Past Psychiatric History: Anxiety Disord er,Bipolar Disorder Middle insomnia Surgical History Surgery Date(Month/Year) Todd fundoplication ([id number]) for GE RD 01/31/2011
== END 2024-12-16 14:16 | disposition home or self-care (01) ==
LOC: CHSIMG 14:17
PROVIDERS: PCP Internal Medicine; Visit Provider Obstetrics & Gynecology
DX: Z12.31 Encounter for screening mammogram for malignant neoplasm of breast (principal)
CPT/HCPCS: 77063; 77067